=== PATIENT | male | born 1985 | race Hispanic/Latino ===

== ENCOUNTER 2016-06-02 21:21 | Emergency (ER) | payer BC, SELFPAY ==
[2016-06-02] MEDS ORDERED: Ondansetron HCl/PF 4 MG/2 ML Vial ONE (21:53)
[2016-06-02] MEDS ORDERED: Pantoprazole 40 MG VIAL ONE (21:53)
[2016-06-02] MEDS ORDERED: Ketorolac Tromethamine 30 MG/ML VIAL ONE (21:53)
[2016-06-02] MEDS ORDERED: Tenecteplase 50 MG - STEMI KIT ONE (21:53)
[2016-06-02 21:54] LABS: #Eosinphils 0.1 thou/uL (0.0-0.7); #Lymphocytes 2.4 thou/uL (1.20-3.40); #Monocytes 0.5 thou/uL (0.11-0.59); #Neutrophils 4.3 thou/uL (1.40-6.50); %Basophils 0.5 % (0.0-1.0); %Eosinophils 0.7 % (0.0-10.0); %Lymphocytes 32.9 % (21.0-51.0); %Monocytes 6.8 % (0.0-10.0); %Neutrophils 59.1 % (42.0-75.0); Hemoglobin 14.6 g/dL (14.0-18.0); Mean Corpuscular HGB CONC 35.1 g/dL (32.0-36.0); Mean Corpuscular Volume 82.7 fl (80.0-94.0); Mean Platelet Volume 9.6 fL (7.4-10.4); Platelet Count 165 thou/uL (130-400); Red Blood Cell (RBC) Count 5.05 mill/uL (4.70-6.10); White Blood Cell (WBC) Count 7.2 thou/uL (4.8-10.8)
[2016-06-02 21:57] LABS: Bilirubin Negative (Negative); Blood, Urine Negative (Negative); Clarity Cloudy (Clear); Glucose, Urine (Dipstick) Negative (Negative); Leukocyte Negative (Negative); Nitrite Negative (Negative); Protein, Urine (Dipstick) Negative (Neg-Trace); Specific Gravity, Urine 1.015 (1.005-1.030); pH, Urine 7.5 (5.0-9.0)
[2016-06-02 22:12] LABS: ALT (SGPT) 45 U/L (0-55); AST (SGOT) 23 U/L (5-34); Albumin 4.2 g/dL (3.5-5.0); Alkaline Phosphatase 107 U/L (40-150); Anion Gap 13 mmol/L (10-20); Bilirubin, Total 0.5 mg/dL (0.2-1.2); Calc. Creatinine Clearance 0 mL/min (70-130); Calcium 9.3 mg/dL (7.8-10.44); Chloride 109 mmol/L (98-107); Estimated GFR-MDRD 75; Globulin 2.9 g/dL (2.4-3.5); Glucose 120 mg/dL (70-105); Lipase 20 U/L (8-78); Potassium 3.5 mmol/L (3.5-5.1); Protein, Total 7.1 g/dL (6.0-8.3); Sodium 143 mmol/L (136-145)
[2016-06-02 22:16] LABS: BUN (Urea Nitrogen) 10 mg/dL (8.9-20.6); Carbon Dioxide 25 mmol/L (22-29)
== END 2016-06-02 22:42 | disposition home or self-care (01) ==
LOC: BURERS 21:21
DX: R10.9 Unspecified abdominal pain (principal)
CPT/HCPCS: 80053; 81003; 83690; 85025; 96374; 96375; C9113; J1885; J2405; J3101